=== PATIENT | female | born 1960 | race Caucasian/White ===

== ENCOUNTER 2020-02-08 07:30 | Inpatient (IN) ==
[2020-01-31 14:50] LABS: Prothrombin Time 13.2 sec (11.9-14.5)
[2020-01-31 15:34] LABS: Basophils # (Auto) 0.01 K/mcL (0.00-0.30); Basophils % (Auto) 0.3 % (0.0-2.0); Eosinophils # (Auto) 0.01 K/mcL (0.00-0.70); Eosinophils % (Auto) 0.3 % (0.0-7.0); Granulocytes % (Auto) 56.3 % (38.0-78.0); Hematocrit 39.1 % (34.1-44.9); Hemoglobin 12.7 g/dL (11.2-15.7); Lymphocytes # (Auto) 0.96 K/mcL (1.50-4.80); Lymphocytes % (Auto) 28.9 % (15.5-49.0); Mean Cell Volume 91.6 fL (80.0-100.0); Mean Corpuscular HGB Conc 32.5 g/dL (31.0-36.0); Mean Platelet Volume 9.4 fL (7.4-10.4); Monocytes # (Auto) 0.47 K/mcL (0.10-0.90); Monocytes % (Auto) 14.2 % (1.0-12.0); Platelet Count 202 K/mcL (140-440); RBC 4.27 M/mcL (3.59-5.38); WBC 3.3 K/mcL (4.50-11.00)
[2020-01-31 15:45] LABS: Blood Urea Nitrogen 23 mg/dl (6-20); Calcium 8.8 mg/dl (8.6-10.4); Carbon Dioxide 23 mmol/L (22-30); Chloride 103 mmol/L (96-108); Glomerular Filtration Rate 46; Glucose 84 mg/dL (70-105)
[2020-01-31 18:34] LABS: Appearance,Urine HAZY; Bacteria,Urine 0 /hpf (0); Bilirubin,Urine NEG (NEG); Calcium Oxalate Crystals,Urine MANY /hpf (0); Color,Urine YELLOW; Culture Indicated,Urine NO; Glucose,Urine (UA) NEGATIVE (NEG); Ketones,Urine NEG (NEG); Leukocyte Esterase,Urine NEG /uL (NEG); Mucus,Urine FEW /hpf (0); Nitrate,Urine NEG (NEG); Protein,Urine 30 mg/dL (NEG); Urine Blood >=1.0 mg/dL (<0.03); Urine RBC > 182 /hpf (0-1); Urine Squamous Epithelial Cell 0 /hpf (0-4); Urine WBC 1 /hpf (0-4)
[~2020-02-08 07:30] MED LIST: 0.9 % SODIUM CHLORIDE 9 ML, KETOROLAC 30 MG, ROPIVACAINE HCL/PF 49.5 ML, EPINEPHrine 0.... IJ SCH; CELECOXIB 200 MG CAPSULE PO SCH; PREGABALIN 100 MG CAPSULE PO SCH; ceFAZolin 2 GM in DEXTROSE 5% IN WATER 50 ML IV SCH; oxyCODONE 10 MG TAB.ER.12H PO SCH
[2020-02-08] MEDS ORDERED: IPRATROPIUM/ALBUTEROL 3 ML AMPUL.NEB NEB PRN ×2 (11:00→16:53)
[2020-02-08] MEDS ORDERED: SCOPOLAMINE 1 PATCH PATCH TOPICAL PRN (11:00)
[2020-02-08] MEDS ORDERED: KETAMINE 100 MG/ML ML ONE (14:38)
[2020-02-08] MEDS ORDERED: ROPIVACAINE HCL/PF 20 ML VIAL IJ ONE (14:38)
[2020-02-08] MEDS ORDERED: TRANEXAMIC ACID 1,000 MG/10 ML VIAL IV ONE (14:38)
[2020-02-08] MEDS ORDERED: DEXAMETHASONE 10 MG/ML VIAL ONE (14:38)
[2020-02-08] MEDS ORDERED: PROPOFOL 200 MG/20 ML VIAL IV ONE (14:38)
[2020-02-08] MEDS ORDERED: LIDOCAINE HCL/PF 100 MG/5 ML SYRINGE IV ONE (14:38)
[2020-02-08] MEDS ORDERED: ONDANSETRON 4 MG/2 ML VIAL ONE (14:38)
[2020-02-08] MEDS ORDERED: SUCCINYLCHOLINE 20 MG/ML ML IV ONE (14:38)
[2020-02-08] MEDS ORDERED: MIDAZOLAM 5 MG/5 ML VIAL ONE (14:38)
[2020-02-08] MEDS ORDERED: GENTAMICIN SULFATE 800 MG/20 ML VIAL IR ONE (15:10)
--- NOTE | 2020-02-08 16:51 | General Surgery Procedure Note ---
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
[2020-02-08] MEDS ORDERED: TRANEXAMIC ACID 1,000 MG/10 ML VIAL IV SCH (16:52)
[2020-02-08] MEDS ORDERED: ONDANSETRON 4 MG/2 ML VIAL IV PRN ×2 (16:52→16:53)
[2020-02-08] MEDS ORDERED: MAGNESIUM HYDROXIDE 30 ML ORAL.SUSP PO PRN (16:52)
[2020-02-08] MEDS ORDERED: ACETAMINOPHEN 325 MG TABLET PO PRN (16:52)
[2020-02-08] MEDS ORDERED: METHOCARBAMOL 750 MG TABLET PO PRN (16:52)
[2020-02-08] MEDS ORDERED: ONDANSETRON 4 MG ODT TABLET SL PRN (16:52)
[2020-02-08] MEDS ORDERED: FLEETS ADULT ENEMA PR PRN (16:52)
[2020-02-08] MEDS ORDERED: POLYETHYLENE GLYCOL 3350 17 GM PACKET PO PRN (16:52)
[2020-02-08] MEDS ORDERED: BISACODYL 10 MG SUPP.RECT PR PRN (16:52)
--- NOTE | 2020-02-08 16:52 | Discharge Plan ---
Discharge Instructions - TKA Patient Instructions Total Knee Protocol: For Total Knee: Start ROM SARAH with stationary bike or rocking chair. Work on gaining full extension of knee. Posterior dislocation precautions provided. Hip abductor strengthening and gait training instructions provided. Apply Cryocuff as instructed. Dressing Care: May shower in 2 days Discharge Plan Patient/Caregiver Discharge Instructions Activity: ambulate only with your walker and as per physical therapy Diet: Regular Diet Prescriptions: No Action tizanidine 2 mg tablet 4 mg PO BID PRN (Reason: Muscle Spasm) RF: 0 exemestane 25 mg tablet 25 mg PO QDAY RF: 0 biotin 2,500 mcg capsule 5,000 mcg PO QDAY RF: 0 beclomethasone dipropionate [Qvar] 80 mcg/actuation aerosol 2 puff INHALATION Q12H RF: 0 alprazolam 0.25 mg tablet 0.25 mg PO TID RF: 0 albuterol sulfate [Ventolin HFA] 90 mcg/actuation HFA aerosol inhaler 1 puff INHALATION ONCE PRN (Reason: Bronchodilation) RF: 0 duloxetine 30 mg capsule,delayed release(DR/EC) 30 mg PO QDAY RF: 0 pregabalin [Lyrica] 100 mg capsule 200 mg PO QDAY RF: 0 omeprazole 40 mg capsule,delayed release(DR/EC) 40 mg PO BID RF: 0 (DME) Aerochamber MV Spacer See Rx Instructions .ROUTE .MEDSUPPLY Qty: 1 RF: 0 levothyroxine 25 MCG tablet 25 mcg PO DAILY RF: 0 duloxetine 60 mg capsule,delayed release(DR/EC) 90 mg PO DAILY RF: 0 meloxicam 15 mg Tablet 7.5 mg PO BID RF: 0 calcium carbonate [Calcium 600] 600 mg calcium (1,500 mg) Tablet 1,200 mg PO QDAY RF: 0 ascorbic acid (vitamin C) [Vitamin C] 500 mg Tablet 1,000 mg PO QDAY RF: 0 ferrous sulfate 325 mg (65 mg iron) Tablet 325 mg PO BID RF: 0 vitamin B complex Tablet 1 tab PO QDAY RF: 0 cholecalciferol (vitamin D3) [Vitamin D3] 125 mcg (5,000 unit) Tablet 125 mcg PO QDAY RF: 0 tramadol 100 mg Tablet 100 mg PO Q6H PRN (Reason: Pain) RF: 0 multivitamin [Daily Multi-Vitamin] Tablet 1 tab PO QAM RF: 0 collagen (bovine) 100 % Powder 1 applic TOPICAL QDAY RF: 0 Follow Up Plan Follow up with: Hoang Prieto MD [Physician] - Patient Disposition: Home, Self-Care Rehab Potential: Good I certify that the patient requires SNF services: No Overall status at discharge: patient is progressing back to baseline Discharge Orders: Discharge Order (Routine); Ordered 02/09/20 Ordered By: Hoang Prieto
[2020-02-08] MEDS ORDERED: METOPROLOL TARTRATE 5 MG/5 ML VIAL IV PRN (16:53)
[2020-02-08] MEDS ORDERED: NALOXONE HCL 0.4 MG/ML VIAL IV PRN (16:53)
[2020-02-08] MEDS ORDERED: ACETAMINOPHEN 1,000 MG/100 ML BOTTLE IV ONE (16:53)
[2020-02-08] MEDS ORDERED: ePHEDrine 50 MG/ML AMPUL IV PRN (16:53)
[2020-02-08] MEDS ORDERED: MEPERIDINE 25 MG/ML SYRINGE IV PRN (16:53)
[2020-02-08] MEDS ORDERED: fentaNYL 100 MCG/2 ML VIAL IV PRN (16:53)
[2020-02-08] MEDS ORDERED: ATROPINE SULFATE 0.4 MG/ML VIAL IV PRN (16:53)
[2020-02-08] MEDS ORDERED: METHOCARBAMOL 1,000 MG/10 ML VIAL IV PRN (16:53)
[2020-02-08] MEDS ORDERED: HYDROmorphone 0.5 MG/0.5 ML SYRINGE IV PRN (16:53)
[2020-02-08] MEDS ORDERED: diphenhydrAMINE 50 MG/ML VIAL IV PRN (16:53)
[2020-02-08] MEDS ORDERED: FLUMAZENIL 0.1 MG/ML ML IV PRN (16:53)
[2020-02-08] MEDS ORDERED: PROMETHAZINE 25 MG/ML VIAL IV PRN (16:53)
[2020-02-08] MEDS ORDERED: ALBUTEROL SULFATE 200 PUFF INHALER INH PRN (16:54)
[2020-02-08] MEDS ORDERED: LORazepam 2 MG/ML VIAL IV ONE (16:55)
--- NOTE | 2020-02-08 16:56 | XRay Report ---
CLINICAL INFORMATION: right knee revision COMPARISON: None. FINDINGS: Longstem tibial prostheses is anatomically aligned. Femoral prostheses also anatomically aligned. No osseous abnormality. Soft tissue swelling expected IMPRESSION: Knee prostheses is anatomically aligned Interpreted and Authenticated by: Hoang Albrecht 02/08/20
[2020-02-08] MEDS ORDERED: LACTATED RINGERS 1,000 ML IV SCH (17:00)
[2020-02-08] MEDS: LACTATED RINGERS 1,000 ML IV SCH (17:24)
[2020-02-08] MEDS: KETOROLAC 15 MG/ML VIAL IV SCH ×2 (18:16→23:54)
[2020-02-08] MEDS: OMEPRAZOLE 20 MG CAPSULE PO SCH (18:16)
[2020-02-08] MEDS: morphine 4 MG/ML VIAL IV PRN ×5 (19:13→22:59)
[2020-02-08] MEDS: DOCUSATE SODIUM 100 MG CAPSULE PO SCH (20:30)
[2020-02-08] MEDS: oxyCODONE/APAP 5/325MG TABLET PO PRN (20:30)
[2020-02-08] MEDS: ASPIRIN 81 MG TAB.CHEW PO SCH (20:30)
[2020-02-08] MEDS: ALPRAZolam 0.25 MG TABLET PO SCH (20:31)
[2020-02-08] MEDS: BENZOCAINE/MENTHOL 1 LOZENGE PO PRN (20:31)
[2020-02-08] MEDS ORDERED: SENNOSIDES 1 TABLET PO SCH (21:00)
[2020-02-08] MEDS: 0.9 % SODIUM CHLORIDE 10 ML SYRINGE IV SCH (21:52)
[2020-02-08] MEDS: BECLOMETHASONE DIPROPIONATE 80MCG INHALER INH SCH (21:52)
[2020-02-08] MEDS ORDERED: HYDROmorphone 1 MG/ML SYRINGE IV PRN (23:18)
[2020-02-08] MEDS: tiZANidine 4 MG TABLET PO PRN (23:27)
[2020-02-08] MEDS ORDERED: HYDROmorphone 1 MG/ML SYRINGE ONE (23:29)
[2020-02-08] MEDS: ceFAZolin 1 GM VIAL IV SCH (23:54)
[2020-02-09] MEDS: oxyCODONE/APAP 5/325MG TABLET PO PRN ×3 (00:31→09:11)
[2020-02-09] MEDS: morphine 4 MG/ML VIAL IV PRN ×2 (00:31→03:17)
[2020-02-09] MEDS: LACTATED RINGERS 1,000 ML IV SCH (02:51)
[2020-02-09] MEDS: BENZOCAINE/MENTHOL 1 LOZENGE PO PRN (03:05)
--- NOTE | 2020-02-09 03:44 | XRay Report ---
CLINICAL INFORMATION: Post-Op Total Knee COMPARISON: Preoperative film 02/08/2020 FINDINGS: Total knee revision prostheses is anatomically aligned. No osseous abnormality. Soft tissue swelling and gas seen as expected. IMPRESSION: Total knee revision anatomic alignment. Interpreted and Authenticated by: Hoang Albrecht 02/09/20
[2020-02-09] MEDS: 0.9 % SODIUM CHLORIDE 10 ML SYRINGE IV SCH (06:04)
[2020-02-09] MEDS: KETOROLAC 15 MG/ML VIAL IV SCH ×2 (06:04→12:15)
[2020-02-09 06:52] LABS: Hematocrit 34.6 % (34.1-44.9); Hemoglobin 11.9 g/dL (11.2-15.7)
[2020-02-09] MEDS: BECLOMETHASONE DIPROPIONATE 80MCG INHALER INH SCH (07:05)
[2020-02-09 07:07] LABS: INR 1.1 (0.9-1.1); Prothrombin Time 14.5 sec (11.9-14.5)
--- NOTE | 2020-02-09 07:27 | Orthopedic Progress Note ---
SUBJECTIVE Subjective Patient information: Note initiated : 02/09/20 at 7:22 am Service Date, if different from initiated Date: [] Patient: Adrianna Durand 59 y/o F admitted on 02/08/20 for Right Revision Total Knee Arthroplasty Tibial. Chief Complaint: [s/p right knee revision arthroplasty] Constitutional Vitals: Vital Signs Temp Pulse Resp BP Pulse Ox 98.0 F 89 24 H 141/79 95 02/08/20 23:09 02/08/20 23:09 02/08/20 23:09 02/08/20 23:09 02/08/20 23:09 Period Temp Pulse Resp BP Sys/North Pulse Ox Last 24 Hr 97.0 F-98.0 F 71-95 16-24 114-148/60-86 94-100 Intake and Output 02/08/20 02/09/20 02/09/20 21:59 05:59 13:59 Intake Total 2390 1600 Output Total 101 1000 Balance 2289 600 Weight 260 lb 3.2 oz Intake & Output: Intake & Output 02/08/20 02/09/20 02/09/20 21:59 05:59 13:59 Intake Total 2390 1600 Output Total 101 1000 Balance 2289 600 Weight 260 lb 3.2 oz Intake: IV 150 1000 Lactated Ringers 1,000 ml @ 125 1000 mls/hr IV .Q8H [facility] Rx#: [id number] Ancef 2 gm In Dextrose 5% in 50 Water 50 ml @ 100 mls/hr IV PREOP [facility] Rx#:[id number] Oral 240 600 IV - Manual Only 2000 Output: Void Amount 100 1000 # of times incontinent of urine 1 Other: Urine Appearance Clear Urine Color Pale # Voids 1 1 OBJ DATA Labs CBC & Chem 7: 02/09/20 05:40 01/31/20 10:01 Meds: Medications Acetaminophen (Tylenol) 650 mg PO Q6HP PRN; Protocol PRN Reason: Per Pain Protocol/Fever > 101 Albuterol Sulfate (Ventolin) 1 puff INH DAILYP PRN PRN Reason: Bronchodilation Alprazolam (Xanax) 0.25 mg PO TID [facility] Last Admin: 02/08/20 20:31 Dose: 0.25 mg Documented by: Aspirin (Aspirin) 81 mg PO BID [facility] Last Admin: 02/08/20 20:30 Dose: 81 mg Documented by: Bisacodyl (Dulcolax) 10 mg MA Q2-3DAYS PRN PRN Reason: Constipation Cefazolin Sodium (Ancef) 2 gm IV Q8H [facility] Stop: 02/09/20 07:31 Last Admin: 02/08/20 23:54 Dose: 2 gm Documented by: Docusate Sodium (Colace) 100 mg PO BID [facility] Last Admin: 02/08/20 20:30 Dose: 100 mg Documented by: Duloxetine HCl (Cymbalta) 30 mg PO QDAY [facility] Hydromorphone HCl (Dilaudid) 1 - 2 mg IV Q3HP PRN; Protocol PRN Reason: Per Pain Protocol Ketorolac Tromethamine (Toradol) 15 mg IV Q6 [facility] Stop: 02/10/20 12:01 Last Admin: 02/09/20 06:04 Dose: 15 mg Documented by: Levothyroxine Sodium (Synthroid) 25 mcg PO ACB [facility] Magnesium Hydroxide (Milk Of Magnesia) 30 ml PO BIDP PRN PRN Reason: Constipation Methocarbamol (Robaxin) 750 mg PO Q6HP PRN PRN Reason: Muscle Spasm Last Admin: 02/08/20 20:31 Dose: 750 mg Documented by: Morphine Sulfate (Morphine) 0 mg IV Q1HP PRN; Protocol PRN Reason: Per Pain Protocol Last Admin: 02/09/20 03:17 Dose: 4 mg Documented by: Omeprazole (Prilosec) 40 mg PO BIDAC [facility] Last Admin: 02/08/20 18:16 Dose: 40 mg Documented by: Ondansetron HCl (Zofran) 4 mg IV Q4HP PRN; Protocol PRN Reason: Nausea And Vomiting Ondansetron HCl (Zofran Odt) 4 mg SL Q4HP PRN; Protocol PRN Reason: Nausea And Vomiting Oxycodone/Acetaminophen (Percocet 5-325 Mg) 0 tab PO Q4HP PRN; Protocol PRN Reason: Per Pain Protocol Last Admin: 02/09/20 04:44 Dose: 2 tab Documented by: Beclomethasone Dipropionate 80mcg Inhaler 1 dose INH BID [facility] Last Admin: 02/09/20 07:05 Dose: Not Given Documented by: Polyethylene Glycol (Miralax) 17 gm PO DAILYP PRN PRN Reason: Constipation Pregabalin (Lyrica) 200 mg PO QDAY [facility] Senna (Senokot) 2 tab PO HS [facility] Last Admin: 02/08/20 20:29 Dose: 2 tab Documented by: Sodium Biphosphate/Sodium Phosphate (Fleets Adult) 1 dose MA Q3-4DAYS PRN PRN Reason: Constipation Sodium Chloride (Saline Flush) 10 ml IV Q8 [facility] Last Admin: 02/09/20 06:04 Dose: 10 ml Documented by: Throat Lozenges (Cepacol) 1 lozenge PO PRN PRN PRN Reason: Sore Throat Last Admin: 02/09/20 03:05 Dose: 1 lozenge Documented by: Tizanidine HCl (Zanaflex) 4 mg PO BIDP PRN PRN Reason: Muscle Spasm Last Admin: 02/08/20 23:27 Dose: 4 mg Documented by: A/P Narrative A/P Narrative: patient seen and examined this am, awake alert conversant. Nursing states difficult night with pain control, she was given morphine, dilaudid, robaxin and percocet. This am pt endorses pain is present in her anterior tibial area but managed, we will increase the percocet to her discharge dosage of 10mg and she will continue her at home zanaflex. She has been ambulating periodically in hallway which she states helps with the pain. dressing at right lower extremity clean dry and intact, both lower extremities warm, well perfused and neuro intact. expected discharge today to home. 10 point review of systems performed and is negative. Time Spent With Patient Time: Total time spent is greater than 50% in coordination of care (as documented) at patient's floor/unit and/or counseling patient:
[2020-02-09] MEDS ORDERED: LEVOTHYROXINE 25 MCG TABLET PO SCH (07:30)
--- NOTE | 2020-02-09 07:45 | Operative Note ---
DATE OF OPERATION: 02/08/2020 PREOPERATIVE DIAGNOSIS: Failed right total knee arthroplasty. POSTOPERATIVE DIAGNOSIS: Failed right total knee arthroplasty. PROCEDURE: Revision right total knee arthroplasty of tibial component. SURGEON: Lino Prieto M.D. TIMBER ROBBER SURGEON: Juan Carlos Davidson PA-C. This provider's expertise and technical skill were required throughout the case. The BRANDON assisted with preoperative coordination, intraoperative retraction, wound closure, dressing and splint application, as well as postoperative documentation and care coordination. ANESTHESIA: Spinal with LMA assist. ESTIMATED BLOOD LOSS: 200 mL COMPLICATIONS: None noted. SPECIMENS REMOVED: x2 with 0 WBC/HPF, culture x1. DRAINS: None. TOURNIQUET TIME: 93 minutes at 250 mmHg. IMPLANTS: DePuy AttMosa Records revision tibial base rotating platform size 5 cemented, DePuy [employer] Records revision tibial alignment medial augment cemented 10 mm, DePuy [employer] Records revision tibial sleeve Porocoat fully coated 28 mm, DePuy revision pressfit stem 16 x 60 mm, DePuy Muzzley tibial insert rotating platform posterior stabilized size 6, 7 mm AOX, DePuy gentamycin bone cement 20 grams x4. INDICATIONS: The patient is a 59-year-old female. She has had a previous total knee arthroplasty. She has had increasing pain. We have ruled out infection. Radiographs have confirmed varus alignment of the tibia with collapse of the medial component. We are worried about a potential loose tibial component. After a long discussion about treatment options, the patient elected to proceed with a revision total knee arthroplasty. The risks and benefits were discussed with the patient in detail including, but not limited to, the risks of anesthesia, problems with the heart or lungs related to anesthesia, infection, compromise or injury to the nerves and blood vessels, deep venous thrombosis, pulmonary embolism, pneumonia, continued pain after surgery, worsening pain or symptoms after surgery, swelling, loss of motion, instability, leg length discrepancy, and need for repeat surgery. DESCRIPTION OF PROCEDURE: The patient was seen in the pre-anesthesia waiting room where all questions were answered and the correct side and site were identified and marked. The patient was transferred to the operating room and administered the anesthetic and preoperative antibiotics were withheld. A timeout was then called. The extremity was prepped and draped, exsanguinated, and the tourniquet was inflated to 250 mmHg. A midline skin incision was then made and a standard medial parapatellar arthrotomy was performed. I debrided the medial and lateral gutters as well as the suprapatellar pouch and infrapatellar fat pad. There was some fibrinous bodies within the synovium consistent with irritation and this was sent to pathology for evaluation. I also took a specimen for frozen. Once all the scar tissue was removed, I mobilized the patellar. I performed a lateral release. We visualized the femur, which was in good position and after tapping there was no evidence of loosening or instability. I exposed the tibia and removed the polyethylene component. On inspection the tibia had collapsed into varus. It collapsed on the underlying bone underneath, which subsided. The tibia was completely loose and the cement was not annealed to the tibial baseplate. The tibial baseplate was easily removed. I then removed all of the bone underneath and I took a frozen section from the soft tissues underneath. Both were no WBC/HPF. A culture was also taken. Once all the bone and soft tissue was removed, we thoroughly irrigated and debrided this area. At this point, I felt that a tibia revision was our best option. We then reamed the tibia up to a size 16. We placed a trial component and then felt that a sleeve was necessary. I then placed a fully coated 28 mm sleeve and positioned appropriately. The tibia was cut at the level of the sleeve with a saw using freehand technique. I then used a 10 mm augment on the medial side and placed a 5 mm tibial component over the top, which was found to have good position. A flat plate was taken to confirm alignment. I trialed with a 7 mm thickness polyethylene. I restored the joint line. Full range of motion of the knee including flexion and extension was stable on varus and valgus stress at 0, 30, and 90 degrees, and stable to anterior drawer at 90 degrees. At this point, I felt this was our best option. I then removed all the trial components. I thoroughly irrigated with IrriSept and saline. We then placed the final component including the tibial based rotating platform size 5 cemented with a 10 mm medial augment. The revision tibial sleeve Porocoat fully coated was prepared in a standard fashion size 28 mm and then 16 x 80 mm pressfit stem. Once this was cemented in place in a standard technique using gentamycin bone cement and once it was stabilized, I then placed the final Attune tibial insert rotating platform posterior stabilized size 6, 7 mm AOX. Irrigation with 3 liters antibiotic saline was then performed using jet lavage. I let the tourniquet down and coagulated bleeding vessels. I injected 100 cm3 volume including ropivacaine 49.25 cm3 and 5 mg per cm3, ketorolac 30 mg, and epinephrine 0.5 mg into 100 cm3 volume of normal saline. I closed the retinaculum with #2 Stratafix and then closed subcutaneous tissue in layers out to Dermabond on the skin. A sterile pressure dressing was applied. All needle and sponge counts were correct. The patient was transferred to the recovery room in stable condition. JOHN:nicole Job ID: [id number] Doc ID: [id number] Lino Prieto MD
[2020-02-09] MEDS: ALPRAZolam 0.25 MG TABLET PO SCH (07:54)
[2020-02-09] MEDS: DOCUSATE SODIUM 100 MG CAPSULE PO SCH (07:55)
[2020-02-09] MEDS: ASPIRIN 81 MG TAB.CHEW PO SCH (07:55)
[2020-02-09] MEDS: OMEPRAZOLE 20 MG CAPSULE PO SCH (07:55)
[2020-02-09] MEDS: tiZANidine 4 MG TABLET PO PRN (07:56)
[2020-02-09] MEDS: ceFAZolin 1 GM VIAL IV SCH (07:57)
[2020-02-09] MEDS ORDERED: PREGABALIN 100 MG CAPSULE PO SCH (09:00)
[2020-02-09] MEDS ORDERED: DULoxetine 30 MG CAPSULE PO SCH (09:00)
[2020-02-09] MEDS ORDERED: DULOXETINE 90 MG PO SCH (09:00)
--- NOTE | 2020-02-10 12:03 | Surgical Pathology Report ---
HISTOLOGY SPECIMEN MICROSCOPIC DIAGNOSIS SPECIMEN A - SYNOVIUM, RIGHT KNEE, BIOPSY: -- SYNOVIAL HYPERPLASIA WITH NECROSIS AND MULTINUCLEATED GIANT CELLS. -- NO SIGNIFICANT ACUTE INFLAMMATION (0-1 NEUTROPHILS/hpf). SPECIMEN B - SOFT TISSUE, RIGHT KNEE, UNDER TIBIAL BASE PLATE, BIOPSY: -- FIBROTIC TISSUE WITH CHRONIC INFLAMMATION AND NO SIGNIFICANT ACUTE INFLAMMATION (0-1 NEUTROPHILS/hpf). INTRAOPERATIVE CONSULTATION FROZEN SECTION DIAGNOSES ([facility] [place] [place], [place] FSA - SOFT TISSUE, RIGHT KNEE, BIOPSY: -- 0-1 NEUTROPHILS/hpf. FSB - SOFT TISSUE, RIGHT KNEE UNDER TIBIAL BASE PLATE, BIOPSY: -- 0-1 NEUTROPHILS/hpf. (RLF:sln) PROCEDURAL IMPRESSION Loose tibial component of right total knee. GROSS DESCRIPTION Specimen A: Received fresh for intraoperative consultation labeled right knee synovial tissue, is a multilobulated morrow-yellow portion of tissue measuring 1.5 x 1 x 0.5 cm. Frozen section is performed. Entirely submitted in one cassette. Specimen B: Received fresh for intraoperative consultation labeled right knee under tibial base plate, is a segment of morrow soft tissue and bone measuring 1 x 0.7 x 0.4 cm. Frozen section is performed. Entirely submitted minus the bony fragment in one cassette. (RLF:sln) Electronically Signed by: Becky Rubin M.D.
== END 2020-02-09 12:30 | disposition home or self-care (01) | DRG 467 ==
LOC: MEDSUR 11:04
PROVIDERS: ADMIT Orthopaedic Surgery Sports Medicine; ATTEND Orthopaedic Surgery Sports Medicine